=== PATIENT | female | born 1945 | race Caucasian/White ===

== ENCOUNTER → 2024-01-31 13:42 | Outpatient (REF) | payer OTHER, SELFPAY | LOC: HWRAD 13:42 | PROVIDERS: ATTENDING PHYSICIAN Internal Medicine Hematology & Oncology; FAMILY PHYSICIAN Internal Medicine | DX: C32.9 Malignant neoplasm of larynx, unspecified (principal) | CPT/HCPCS: 70491; 71260; Q9967 ==

== ENCOUNTER 2024-02-21 14:43 | Inpatient (IN) | payer OTHER, SELFPAY ==
[2024-02-21] VITALS (10 sets, daily range): BP systolic 128–154; BP diastolic 74–97; BMI 18.8
--- NOTE | 2024-02-21 09:46 | ED.GENMED ---
History of Present Illness
General
Chief Complaint: Breathing Problem
Source: patient
Exam Limitations: none
Time Seen by Provider: 02/21/24 09:20
Nursing documentation reviewed up to this point in time: agreed with
Travel History
Have you had any contact with someone who has COVID-19?: No
Do you have any symptoms of coronavirus? Fever > 100 degrees, chills, cough, shortness of breath, sore throat, loss of taste or smell, muscle aches, or headache?: Yes
Symptoms:: sob
History of Present Illness
History of Present Illness:
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
Presents for acute shortness of breath since 3 AM. Patient says that she has been coughing for about a month. It appears that she had an outpatient chest and neck CT with contrast in January here showing moderate right middle lobe pneumonia,
moderate right lower lobe pneumonia and moderate central lobar emphysema as well as a stable 1.5 cm spiculated pulmonary mass at the left apex as well as severe mucosal thickening measuring 5.5 cm in the hypopharynx to the subglottic trachea with
wall thickening and laryngeal fold thickening which is partly related to her neoplasm as well as postradiation edema and inflammatory changes
Patient says that she normally has a hoarse voice but normally her breathing is not audible. Patient says that she started feeling short of breath at 3 AM and felt like she could not catch her breath. She says it is not normal for her to sound
this way when she agrees. She does not have known fever, chills, and is able to tolerate her secretions, she is not having any painful swallowing.
Patient has no known diagnosis of COPD however prior to her cancer diagnosis they thought her shortness of breath was related to COPD and she was put on inhalers.
She formally smoked but does not smoke currently
Patient had a former tracheostomy
Past History
Past History
ED Past Medical History: Cancer (laryngeal), COPD and Other (smoker)
ED Past Surgical History: None
Social History
Tobacco: Smoker
Alcohol: None
Drug: None
Personal: Single
Living: alone
Review of Systems
Review of Systems
Allergies reviewed?: Yes
All Other Systems: Not applicable
Phy Exam
Physical Exam
Physical Exam:
GENERAL: Alert , in no apparent distress
EYE: pupils equal and reactive
NECK: Supple, mild swelling and tednerenss anteriorly
ENT: dry mouth
no obvious swelling
laryngitis
CARDIAC: Regular rate and rhythm .
LUNGS: occ cough, wheezing end exp b/l, no tachypnea
ABDOMEN: Soft, without focal tenderness, no r/g, no cvat, normal bowel sounds
NEUROLOGICAL: Alert and oriented, no focal neuro deficits
SKIN: Warm and dry, skin intact.
MUSCULOSKELETAL: No edema, well perfused. neg jean carlos's sign
PSYCH: Normal and appropriate interaction.
Scores
Heart Failure Risk
Heart Failure Risk Score: Not Applicable
Course
Orders/Labs/Results
Orders:
Orders
02/21/24 09:25
EKG [Electrocardiogram (*1)] Urgent
Reason for Study: Shortness of Breath
EKG- Treatment ONCE
02/21/24 09:28
COVID-19 Antigen Urgent
Source: Nasal Swab
Complete Blood Count/With Diff Urgent
Comprehensive Metabolic Panel Urgent
Prothrombin Time Urgent
Troponin I Urgent
Influenza A+B Rapid Molecular Urgent
ELVER Source: Nasal Swab
Specimen Description:
02/21/24 09:46
Ipratropium/Albuterol Sulfate [Duoneb] 3 ml INH R NOW STA
02/21/24 10:10
CT Chest Pe Study Urgent
Comment:
Reason For Exam: new sob, known cancer
CT Neck With Iv Contrast Urgent
Comment:
Reason For Exam: stridor, trouble breathing, larynx cancer
02/21/24 12:31
Piperacillin/Tazo 3.375 Gram [Zosyn] 3.375 gram in 50 ml IV NOW
02/21/24 12:56
Blood Culture Q30M
ELVER Source: Blood/Venous
Specimen Description:
02/21/24 13:12
Blood Culture Q30M
ELVER Source: Blood/Venous
Specimen Description:
02/21/24 14:22
Admit/Transfer Patient As Directed
Co-Sign Provider:
Level of Care: Inpatient admission
Assign to:: Medical/Surgical
Physician / Group: Ariella
Diagnosis: Shortness of breath
Reason for Hospitalization: Shortness of breath
Expected length of stay greater than two midnights?: Yes
ELOS- Estimated Length of Stay in days: 3
I certify the patient meets the requirements for IP care: Yes
02/21/24 14:23
Code Status As Directed
Resuscitation Status: Full Code
Abnormal Lab Results
02/21/24
09:28
WBC 23.3 H 10^3/uL
(4.8-10.8)
RBC 3.77 L 10^6/uL
(4.20-5.40)
Hgb 11.1 L g/dL
(12.0-16.0)
Hct 33.9 L %
(37.0-47.0)
MCHC 32.7 L g/dL
(33.0-37.0)
Abs Immat Gran (auto) 0.4 H 10^3/uL
(0-0.05)
Absolute Neuts (auto) 21.7 H 10^3/uL
(1.4-6.5)
Absolute Lymphs (auto) 0.5 L 10^3/uL
(1.2-3.4)
Immature Gran % 1.5 H %
(0-0.5)
Neutrophils % 92.9 H %
(42.2-75.2)
Lymphocytes % 2.0 L %
(20.5-51.1)
Sodium 133 L mmol/L
(135-145)
Chloride 94 L mmol/L
(98-107)
Carbon Dioxide 33 H mmol/L
(22-30)
Creatinine 0.5 L mg/dL
(0.6-1.0)
Glucose 105 H mg/dl
(70-99)
Alkaline Phosphatase 198 H U/L
(38-126)
02/21/24 09:28
02/21/24 09:28
Vital Signs
Initial and Last Documented VS:
Initial Vital Signs
Temp Pulse Resp BP Pulse Ox
98.8 F 97 22 136/89 93
02/21/24 09:23 02/21/24 09:23 02/21/24 09:23 02/21/24 09:23 02/21/24 09:23
Last Documented Vital Signs
Temp Pulse Resp BP Pulse Ox
99.6 F 102 18 154/84 95
02/21/24 12:43 02/21/24 14:30 02/21/24 14:30 02/21/24 14:00 02/21/24 14:30
MDM/Problems Addressed
Differential Diagnosis Includes:
pneumonia, edema, epiglottitis, covid
MDM/Problems Addressed:
78 y/o F with h/o laryngeal cancer (previously had radiation,chemo,trach with reversal 2021), has had recurrence in the past 6 mo, here with dyspnea since 3 am with some very mild stridorous sounding breathing which she says is not typical; her sat
was 93% and she had some mild wheezes (also has emphysema) and a low grade temp, leukocytosis 23k (not on steroids), flu and covid neg;
and ct neck/chest with stable appearance of submucosal edema from the hypopharynx to the subglottic trachea resulting ing narrowing of the airway; it looks similar to previous ct from last month; she appears more clinicaly like pneumonia - coughing
up secretions, temp 99.6, fatigue;
had a CT from 1 mo ago suggesting pneumonia which was never treated
will admit for airway managmeent, iv abx.
*Critical Care Note
Total Time (30-74mins, 75-104mins- exclusive of procedures): Not Applicable
ED Attending Note
-
Portions of this chart may have been created with voice recognition software.� Occasional wrong word or��sound alike� substitutions may have occurred due to the inherent limitations of voice recognition software.
Discharge Plan
Departure
Patient Disposition: Admit
Date of Disposition: 02/21/24
Time of Disposition: 12:44
Admit to: IMU
Presentation/result/management discussed w/ accepting MD/DO: Hospitalist
Condition: Fair
Covid-19: Negative COVID-19
Discharge Problem:
Stridor, Dyspnea, COPD exacerbation
Interventions
Interventions:
*Risk Screen - Suicide Last Done: 02/21/24 09:27
*General Assessment Last Done: 02/21/24 09:27
*Neglect/Abuse Screening Last Done: 02/21/24 09:27
*ED COVID-19 Vaccine History Last Done: 02/21/24 09:27
ED- Cardiac Assessment Last Done: 02/21/24 09:27
ED- Pulmonary Assessment Last Done: 02/21/24 09:27
[2024-02-21] MEDS: DUONEB 3 ML INH ×2 (09:50→19:16)
[2024-02-21 09:54] LABS: % Basophils 0.8 % (0-2); % Eosinophils 0.3 % (0-6); % Immature Granulocytes 1.5 % (0-0.5); % Monocytes 2.5 % (1.7-9.3); % Neutrophils 92.9 % (42.2-75.2); Absolute Basophils 0.2 10^3/uL (0-0.2); Absolute Eosinophils 0.1 10^3/uL (0-0.7); Absolute Immature Granulocytes 0.4 10^3/uL (0-0.05); Absolute Lymphocytes 0.5 10^3/uL (1.2-3.4); Absolute Monocytes 0.6 10^3/uL (0.1-0.6); Absolute Neutrophils 21.7 10^3/uL (1.4-6.5); Hematocrit 33.9 % (37.0-47.0); Hemoglobin 11.1 g/dL (12.0-16.0); Mean Corp Hgb Conc. 32.7 g/dL (33.0-37.0); Mean Corpuscular Hgb 29.4 pg (27.0-31.0); Mean Corpuscular Volume 89.9 fL (81.0-99.0); Mean Platelet Volume 8.8 fL (7.4-10.4); Nucleated Red Blood Cells % 0 %; Platelet Count 260 10^3/uL (130-400); Red Blood Cell Count 3.77 10^6/uL (4.20-5.40); White Blood Cell Count 23.3 10^3/uL (4.8-10.8)
[2024-02-21 09:55] LABS: COVID-19 Antigen Negative (Negative)
[2024-02-21 09:56] LABS: INR 1.02; PT 13.4 Sec (11.4-14.6)
[2024-02-21 09:58] LABS: ALT (SGPT) 18 U/L (0-35); AST (SGOT) 21 U/L (14-36); Albumin 3.8 g/dl (3.5-5.0); Alkaline Phosphatase 198 U/L (38-126); Blood Urea Nitrogen 16 mg/dl (7-17); Calcium 9.5 mg/dl (8.4-10.2); Carbon Dioxide 33 mmol/L (22-30); Chloride 94 mmol/L (98-107); Estimated Creatinine Clearance 66 ml/min; Glucose 105 mg/dl (70-99); Potassium 4.3 mmol/L (3.5-5.1); Sodium 133 mmol/L (135-145); Total Bilirubin 0.5 mg/dl (0.2-1.3); Total Protein 6.7 g/dl (6.3-8.2); eGFR > 60.00
[2024-02-21 10:35] LABS: Troponin I < 0.012 ng/ml
[2024-02-21] MEDS: ZOSYN 50 IV (13:01)
--- NOTE | 2024-02-21 13:54 | PHANOTE ---
Patient receives chemotherapy at [facility] [[facility]] per patient report. She is scheduled for the next regimen on 03/01/24. Contacted clinic for drug regimen information. Center will fax information to ED fax.
--- NOTE | 2024-02-21 14:27 | HPS.HSE ---
Family Physician
-
Family Physician: Charlee Win
Chief Complaint
-
Shortness of breath
History of Present Illness
78-year-old female with history of laryngeal cancer treated with chemo and radiation in the past there was some scars down around her neck and she is having hoarseness of voice posttreatment, presented to the hospital after she woke up o'clock in
the morning feeling short of breath and gasping for air.
Admitted when she went to bed she was doing well. Then his symptom in the last couple days like fever or chill or cough or congestion, no headache or vision change, no urinary or GI symptoms.
No recent travel or sick contact.
Workup in the ER CT chest basically showed no pulm embolism and this showed some secretion in right and left main bronchi and left lower area was some pulmonary nodules seen in the past. In the ER given breathing treatment and overall feels some
improvement.
She is awake, alert and oriented x 3 and holds appropriate conversation, accompanied by her son at the bedside.
Patient admits she eats soft diet to the nectar thick liquid.
And according to the son she is not been eating drinking much and at some point she had a PEG tube now per recommendation of her oncologist who recommended she may need PEG tube she asked to be evaluated for PEG tube placement
Medical History
Past Medical History
Past Medical History: Reports Other
Additional Past Medical History:
Past medical history and reviewed: Next
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
Chronic hoarseness of voice
COPD
Pharyngeal dysphagia on soft diet with the nectar thick liquid.
History of tracheostomy placement and removal
History of PEG tube placement and removal
History of recurrent pneumonia
Social history: Lives at home with the family, quit smoking 2019 before diagnosed with laryngeal cancer, no alcohol or drug.
Family history: Reviewed and noncontributory
Past Surgical History: Reports Other
Social History
Unable to obtain full social history at this time due to: Other
Family History
Family History: Other
Allergies / Home Medications
Allergies reflects when Allergies were last updated in [facility].
Home Medications with original date entered in [facility]
Allergy/Medication List:
Allergies
Allergy/AdvReac Type Severity Reaction Status Date / Time
No Known Allergies Allergy Verified 02/21/24 09:24
Home Medications
acetaminophen 500 mg tablet 500 mg PO TIDPRN PRN pain 02/21/24
carboplatin 150 mg intravenous solution 260 mg IV UD 02/21/24
dexamethasone 4 mg tablet 4 mg PO UD taken with chemotherapy 02/21/24
docetaxel 80 mg/4 mL (20 mg/mL) intravenous solution 222 mg IV UD 02/21/24
ferrous sulfate 220 mg (44 mg iron)/5 mL oral elixir 220 mg PO DAILY supplement 02/21/24
gabapentin 250 mg/5 mL oral solution 250 mg PO BID pain 02/21/24
ibuprofen 200 mg tablet 400 mg PO BIDPRN PRN pain 02/21/24
mirtazapine 15 mg tablet 15 mg PO HS appetite stimulant 02/21/24
ondansetron HCl 8 mg tablet 8 mg PO Q8HPRN PRN nausea 02/21/24
oxycodone-acetaminophen 5 mg-325 mg tablet 1 tab PO Q6HPRN PRN pain 02/21/24
paclitaxel 6 mg/mL concentrate,intravenous 0 mg IV UD 02/21/24
pembrolizumab 25 mg/mL intravenous solution (Keytruda) 220 mg IV UD 02/21/24
prochlorperazine maleate 10 mg tablet 10 mg PO Q6HPRN PRN nausea 02/21/24
Review of Systems
-
A 12 point ROS was completed and negative except as noted: Yes
Physical Exam
Vital Signs
Vital Signs
Temp Pulse Resp BP Pulse Ox
99.6 F 103 22 154/84 93
02/21/24 12:43 02/21/24 14:15 02/21/24 14:15 02/21/24 14:00 02/21/24 14:15
Physical exam:
General: Mildly audible wheezing, hoarseness of voice appreciate awake, alert and oriented x3, not in distress and holds appropriate conversation.
HEENT: No active discharge, ecchymosis or bruising, moist lips, tongue and mucous membrane.
Eyes: No discharge or red conjunctiva, no nystagmus, pupils are reactive and equal
Neck: Scar and disfiguration of the neck anteriorly appreciated, supple, no JVD no bruit no goiter.
Respiratory: Normal AP contour and diameter, normal chest wall movement, normal respiratory effort, no respiratory distress,
Lungs: Good air entry bilaterally, bilateral wheezing and rhonchi, bilateral scattered rales .
Heart: S1, S2 regular, normal rate, no added sound.
Gastrointestinal: Positive bowel sounds, soft, nontender, no guarding or rigidity or organomegaly
Musculoskeletal: , no chest wall abnormality or tenderness. All joints and extremities have good range of motion, no muscle tenderness or any joint swelling or tenderness.
Extremities: No pitting edema, good peripheral pulses, good range of motion
Skin: Warm and dry, no ulceration, normal color.
Neurological: Awake, alert and oriented x3, speech clear and comprehensive, good muscle tone, good muscle tone moves extremities freely
Psychiatric: Normal mood, normal thought and judgment, normal affect,
Physical Exam
General: Other
Laboratory Results
-
02/21/24 09:28
02/21/24 09:28
Laboratory Results
PT 13.4 Sec (11.4-14.6) 02/21/24 09:28
INR 1.02 02/21/24 09:28
Total Bilirubin 0.5 mg/dl (0.2-1.3) 02/21/24 09:28
AST 21 U/L (14-36) 02/21/24 09:28
ALT 18 U/L (0-35) 02/21/24:28
Alkaline Phosphatase 198 U/L (38-126) H 02/21/24 09:28
Troponin I < 0.012 ng/ml 02/21/24 09:28
CT neck and chest:
NECK:
1. Submucosal edema from the hypopharynx to the subglottic trachea with resultant narrowing of the airway at the level of the larynx. Findings remain most suggestive of treated neoplasm and posttreatment related changes. Similar appearance compared
to the neck CT from 01/31/2024. Direct visualization can be considered if clinically indicated.
CHEST:
1. No CTA evidence for an acute pulmonary thromboembolism.
2. Moderate emphysema.
3. Stable spiculated pulmonary nodule in the left lung apex corresponding to treated malignancy.
4. Secretions in the right and left mainstem bronchi and left lower lobe bronchi.
Data Reviewed
-
Diagnostic Radiology: Image Personally Visualized and interpreted, Discussed with Patient and Discussed with Family
Lab Data: Labs Reviewed by me, Discussed with Patient and Discussed with Family
Old Records: Reviewed
Impression/Plan
-
IMPRESSION:
78-year-old female with laryngeal cancer and COPD, presented with sudden onset of shortness of breath around 3:00 in the morning, concerning for COPD exacerbation with possible superadded or triggered by pneumonia especially she is at risk of
aspiration pneumonia and she is immunocompromise.
Acute sepsis: His white cell count is more than 23,, possible related to COPD exacerbation by pneumonia specialist for aspiration pneumonia in immunocompromised patient.
Shortness of breath
Concern for pneumonia special aspiration pneumonia
Leukocytosis.
Failure to thrive
Poor oral intake because of the laryngeal cancer
Hyponatremia, present on admission sodium is 133,
History of laryngeal cancer status post chemoradiation
Chronic hoarseness of voice
Ex-smoker
PLAN:
For now we will not like COPD exacerbation and pneumonia specialist for the MRSA and Pseudomonas with history of recurrent pneumonia in the past and being immunocompromise.
Cover with Vanco and cefepime
Sputum and blood cultures ordered, antibiotic can be tailored accordingly if there is no culture or negative, antibiotic could be discontinued
Procalcitonin
Monitor vital sign
IV fluid
Cough medication as needed
Nausea meds as needed
DuoNeb 4 times daily
Dexamethasone 4 mg every 8 hour taper as she improved
CT neck shows some laryngeal edema and thickening but have no respiratory compromise and this is seen in the prior CAT scan, patient already on Decadron and breathing treatment
Mechanical soft diet and nectar thick liquid
Get a swallowing eval
Patient was recommended to have evaluation of the PEG tube as she is not eating drinking much, will consult GI admitted for further workup through GI
All discussed with the patient and his son
CODE STATUS full code
DVT prophylaxis heparin subcu
--- NOTE | 2024-02-21 14:59 | CON.GI ---
Addendum entered and electronically signed by Lazara Prabhakar DO 02/21/24 16:51:
Patient seen and examined independently of HAROLDO. I agree with her note with my additions below.
I did review her yesterday's note with her oncologist, Dr. Anne Yoder at [place]. She has a history of recurrent laryngeal cancer squamous cell type. Her care is all at [place] but does she does do her imaging here at [facility].
Patient was at home became short of breath called 911 and was brought to [facility]. Her most recent chemo and immunotherapy was February 09, 2024. She is on carbo/Taxol/Keytruda every 21 days.
Overall, she has not been doing well. She has trouble with appetite taste, painful swallowing. She is losing weight feeling fatigue. Says it takes her all day just to drink a small amount of fluid. The sips go down very slowly. She was seen by
ENT in early January at [place]. Tells me they did a biopsy and a dilation. On imaging she has narrowing of the larynx as well as fluid in the bronchial tubes. She is being treated for pneumonia and states that after getting antibiotics she had
some mild improvement. She is not on oxygen and is satting 94% on room air. She is audibly wheezing. Her lungs are also wheezing on exam. She is asking about a PEG tube which is also present in her oncology note. She is not followed by GI at
[place], but was seen by Dr. Bravo for EGD/EUS in the past. In the past she did have a trach and PEG placed in September 2022 sounds like it was removed in 2022.
Patient states she is lost about 18 pounds over the last month. She was started on Remeron for appetite stimulation Magic mouthwash for dysphagia.
We put a call out to her oncologist to ensure there is no contraindication for her to have a PEG tube
Currently needs pulmonary optimization prior to being sedated for a PEG.
Would suggest a T-fastener PEG tube and if her pulmonary status is optimized we could plan for this on Monday
Original Note:
Consultation
-
Date/Time Consultation Requested: 02/21/24 1430
Date/Time Consultation Performed: 02/21/24 1500
Requesting Provider: Jass Krishnan MD
Performing Provider: HAROLDO Plunkett, Lazara Prabhakar DO
Reason for Consultation: peg evaluation
Medical History
Chief Complaint / HPI
Chief Complaint: failure to thrive
History of Present Illness:
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 In reviewing with patient she was diagnosed in 2021. She initially had
chemo and radiation with placement and trach and peg and removal after completed. She had recurrence and had been on current therapy with Dr. Anne Yoder. Per chart has been on carboplatin, Taxotere and Keytruda with last treatment 02/08.
Last PET scan completed here with recurrent laryngeal CA. 1.4 cm pulm nodule and vertebral uptake inflammation, infection or less likely malignancy and emphysema. Recent CT chest and neck on admission with edema from hypopharynx to trachea and
narrowing of airway with treated neoplasm. She also admits to throat biopsy and stretching with decline since 01/11. She now presents with shortness of breath and cough over last month with concern for PNA vs COPD with sepsis and elevated WBC's.
Asked to see as patient concern for wt loss of recent 6 lb with slow eating with concern for aspiration to reassess for peg.
At this time she admits to odynophagia and slow eating. Minimal dysphagia. Occasional nausea controlled with Zofran. Pt otherwise denies GERD, vomiting, abdominal pain, diarrhea, constipation,blood or black in stools. Pt did not recall EGD
in past but possibly completed with peg. No colonoscopy in past.
Past Medical History
Past Medical History: Cancer (laryngeal CA squamous cell CA, vocal cord tumor s/p chemo and radiation the local recurrence with also noted lung nodule and uptake L5/S1 inflammation, infection vs less likely malignancy, mediastinal ), COPD and Other
(chronic hoarseness, pharyngeal dysphagia, recurrent PNA, anemia, cardiomyopathy )
Past Surgical History: Other (prior trach and pegm, throat bx and dilation 01/12/24, bronch)
Social History
Tobacco: Former Smoker
Alcohol: Former
Drug: None
Personal:
Living: With Family
Employment: Retired
Family History
Family History: Other (no family hx GI malignancies )
Allergies / Home Medications
Allergy/AdvReac Type Severity Reaction Status Date / Time
No Known Allergies Allergy Verified 02/21/24 09:24
�Medication �Instructions �Recorded
acetaminophen 500 mg tablet 500 mg PO TIDPRN PRN pain 02/21/24
carboplatin 150 mg intravenous 260 mg IV UD 02/21/24
solution
dexamethasone 4 mg tablet 4 mg PO UD taken with chemotherapy 02/21/24
docetaxel 80 mg/4 mL (20 mg/mL) 222 mg IV UD 02/21/24
intravenous solution
ferrous sulfate 220 mg (44 mg 220 mg PO DAILY supplement 02/21/24
iron)/5 mL oral elixir
gabapentin 250 mg/5 mL oral 250 mg PO BID pain 02/21/24
solution
ibuprofen 200 mg tablet 400 mg PO BIDPRN PRN pain 02/21/24
mirtazapine 15 mg tablet 15 mg PO HS appetite stimulant 02/21/24
ondansetron HCl 8 mg tablet 8 mg PO Q8HPRN PRN nausea 02/21/24
oxycodone-acetaminophen 5 mg-325 1 tab PO Q6HPRN PRN pain 02/21/24
mg tablet
paclitaxel 6 mg/mL 0 mg IV UD 02/21/24
concentrate,intravenous
pembrolizumab 25 mg/mL intravenous 220 mg IV UD 02/21/24
solution (Keytruda)
prochlorperazine maleate 10 mg 10 mg PO Q6HPRN PRN nausea 02/21/24
tablet
Review of Systems
-
History Source: Patient
Constitutional: Reports Weight Loss (pt with wt loss last year then gain recent 6 lbs wt loss )
EENT: Reports Other (dysphagia, post nasal drip with secretions, hoarseness )
Respiratory: Reports Cough and Trouble Breathing
Cardiac: Reports No Symptoms
Abdomen/GI: Reports Nausea
: Reports No Symptoms
Musculoskeletal: Reports No Symptoms
Skin: Reports No Symptoms
Neurological: Reports Weakness
Endocrine: Reports No Symptoms
Hematologic/Lymphatic: Reports No Symptoms
Vital Signs
Temp Pulse Resp BP Pulse Ox
99.6 F 102 18 154/84 95
02/21/24 12:43 02/21/24 14:30 02/21/24 14:30 02/21/24 14:00 02/21/24 14:30
Physical Exam
Exam
General: Other (thin appearing)
HEENT: Other (soft hoarse voice, no thrush noted on exam)
Respiratory: Other (decreased bases with productive cough with secretions)
Cardiac: Other (tachy)
GI: Soft, Non Tender, Non Distended and Other (old peg site healed)
Musculoskeletal: No Clubbing and No Cyanosis
Skin: Warm and Dry
Neuro: Awake, Alert and AO x 3
Psych: Calm
Results
WBC 23.3 10^3/uL (4.8-10.8) H 02/21/24 09:28
Hgb 11.1 g/dL (12.0-16.0) L 02/21/24 09:28
Hct 33.9 % (37.0-47.0) L 02/21/24 09:28
MCV 89.9 fL (81.0-99.0) 02/21/24 09:28
Plt Count 260 10^3/uL (130-400) 02/21/24 09:28
Absolute Neuts (auto) 21.7 10^3/uL (1.4-6.5) H 02/21/24 09:
PT 13.4 Sec (11.4-14.6) 02/21/24:
INR 1.02 02/21/24:
Sodium 133 mmol/L (135-145) L 02/21/24:
Potassium 4.3 mmol/L (3.5-5.1) 02/21/24:
Chloride 94 mmol/L (98-107) L 02/21/24:
Carbon Dioxide 33 mmol/L (22-30) H 02/21/24:
BUN 16 mg/dl (7-17) 02/21/24:
Creatinine 0.5 mg/dL (0.6-1.0) L 02/21/24
Calcium 9.5 mg/dl (8.4-10.2) 02/21/24:
Total Bilirubin 0.5 mg/dl (0.2-1.3) 02/21/24:
AST 21 U/L (14-36) 02/21/24:
ALT 18 U/L (0-35) 02/21/24:
Alkaline Phosphatase 198 U/L (38-126) H 02/21/24:
Diagnostic Image Results:
11/29/23 PET
1. Marked interval increase in elevated FDG uptake in the larynx suggesting RECURRENT LARYNGEAL CARCINOMA.
2. 1.4 cm spiculated pulmonary nodule in the left lung apex at the site of treated malignancy.
3. New 2.0 cm focus of increased FDG uptake located along the left anterolateral margin of the L5/S1 intervertebral disc. Diagnostic possibilities are (1) acute inflammation, (2) acute infection, or (3) less likely malignancy given the location.
4. Moderate emphysema in the upper lobes of both lungs.
02/21/24 CT chest/neck
NECK:
1. Submucosal edema from the hypopharynx to the subglottic trachea with resultant narrowing of the airway at the level of the larynx. Findings remain most suggestive of treated neoplasm and posttreatment related changes. Similar appearance compared
to the neck CT from 01/31/2024. Direct visualization can be considered if clinically indicated.
CHEST:
1. No CTA evidence for an acute pulmonary thromboembolism.
2. Moderate emphysema.
3. Stable spiculated pulmonary nodule in the left lung apex corresponding to treated malignancy.
4. Secretions in the right and left mainstem bronchi and left lower lobe bronchi.
Prior GI Procedures:
EGD: ? with peg
Colonoscopy: pt did not recall
Assessment / Plan
-
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 In reviewing with patient she was diagnosed in 2021. She initially had
chemo and radiation with placement and trach and peg and removal after completed. She had recurrence and had been on current therapy with Dr. Anne Yoder. Per chart has been on carboplatin, Taxotere and Keytruda with last treatment 02/08.
Last PET scan completed here with recurrent laryngeal CA. 1.4 cm pulm nodule and vertebral uptake inflammation, infection or less likely malignancy and emphysema. Recent CT chest and neck on admission with edema from hypopharynx to trachea and
narrowing of airway with treated neoplasm. She also admits to throat biopsy and stretching with decline since 01/11. She now presents with shortness of breath and cough over last month with concern for PNA vs COPD with sepsis and elevated WBC's.
Asked to see as patient concern for wt loss of recent 6 lb with slow eating with concern for aspiration to reassess for peg.
-laryngeal vocal cord CA with pulm nodule and uptake in spine less likely malignancy with currently carboplatin, Taxotere and Keytruda last 02/08
-odynophagia with slow eating
-hx biopsy and dilation 01/12/24
-leukocytosis
-possible COPD exacerbation vs PNA
-wt loss/failure to thrive
-prior trach and peg
other medical problems:
prior tobacco use
-CM
-chronic hoarseness
PLAN:
will review with Dr. Prabhakar for peg replacement
reviewed with nursing staff at Dr. Yoder's office and noted last office note 02/20 that peg /remeron for appetite stimulation was discussed
t/c replacement when stable from resp standpoint
would need to consider T fastner placement with prior need for dilation 01/11
Pt is a in agreement for placement
no current anticoagulation or abdominal metastatic disease noted
trend WBC's
for speech eval
will follow
-
-
Thank you for consultation and allowing me to participate in the patient's care. Please call the technical solutions engineer GI physician during the after hours with any questions or concerns.
--- NOTE | 2024-02-21 16:51 | W.PN.UPDATE ---
Update Note
Progress Note Update
For billing purposes
[2024-02-21] MEDS: DUONEB INH (18:02)
--- NOTE | 2024-02-21 18:40 | PTCARENOTE ---
pt admitted from ED aox3, insp and exp wheeze b/L pt on RA. regular heart sounds. +BS x4 pt reports last bm yesterday. cont b&B, skin CDI +PP B/L. dtr at bedside. CB within reach
--- NOTE | 2024-02-21 19:50 | PHA.VAN.IN ---
Assessment
- Assessment
Renal Function: Appears similar to baseline
Concomitant Antimicrobials: CEFEPIME
- Previous Dosing Experience
Previous Regimen: NONE
AUC Dosing Plan
- Dosing Variables
Dosing Weight (kg): 59.3
Dosing CrCl (ml/min): 75
Vd coefficient (L/kg): 0.7
- Empiric Dosing
Initial / Loading Dose: 1250MG
Maintenance Regimen: 750MG IV Q12H
Estimated AUC (mcg*h/mL): 560
Estimated Peak (mcg*h/mL): 32.8
Estimated Trough (mcg/ml): 15.8
Estimated Half Life (H): 10.4
Pharmacokinetics Vancomycin I
- -
Patient Age: 78
Patient Sex: Female
Vancomycin Day #: 1
Indication: Pulmonary/Respiratory
Requesting Provider: WHITNEY
Height / Weight:
Height 5 ft 6 in
Actual Weight 52.7 kg
Adjusted BW in k.3
- Vital Signs / Lab Results
Temp Pulse Resp BP Pulse Ox
98.5 F 94 16 133/96 95
02/21/24 18:23 02/21/24 19:20 02/21/24 19:20 02/21/24 18:23 02/21/24 19:20
Lab Results - Hematology
02/21/24
09:28
WBC 23.3 H
Lab Results - Chemistry
02/21/24
09:28
BUN 16
Creatinine 0.5 L
Estimated Creat Clear 66
Albumin 3.8
Microbiology Results
02/21/24 09:28 Influenza Types A & B ([facility]) - Final
Nasal Swab Negative for Influenza A & B, NAAT
Negative results must be combined with clinical observations
and patient history.
Nucleic Acid Amplification test (NAAT)performed on the
[employer] platform.
[2024-02-21] MEDS: VANCOCIN 275 MG IV (20:24)
[2024-02-21] MEDS: NSS 1000 IV (20:24)
[2024-02-21] MEDS: NEURONTIN 250 MG PO (20:25)
[2024-02-21] MEDS: STERILE WATER FOR INJECTION 10 ML IV (20:25)
[2024-02-21] MEDS: DECADRON 4 MG IV (20:26)
[2024-02-21] MEDS: HEPARIN 5000 UNITS SC (20:26)
[2024-02-21] MEDS: MAXIPIME 1000 MG IV (20:26)
[2024-02-21] MEDS: REMERON 15 MG PO (20:29)
[2024-02-21] MEDS: FLUSH (NSS) 2 FLUSH IV (20:34)
[2024-02-22] MEDS: DECADRON 4 MG IV ×2 (04:11→12:33)
[2024-02-22] MEDS: MAXIPIME 1000 MG IV ×3 (04:11→21:27)
[2024-02-22] MEDS: STERILE WATER FOR INJECTION 10 ML IV ×3 (04:11→21:27)
[2024-02-22] MEDS: VANCOCIN 150 IV ×2 (06:05→17:58)
[2024-02-22 06:16] VITALS: BMI 17.2
[2024-02-22 07:00] VITALS: BP 127/87
[2024-02-22 07:19] LABS: % Basophils 0.3 % (0-2); % Immature Granulocytes 1.2 % (0-0.5); % Lymphocytes 1.4 % (20.5-51.1); % Monocytes 0.5 % (1.7-9.3); % Neutrophils 96.6 % (42.2-75.2); Absolute Basophils 0.1 10^3/uL (0-0.2); Absolute Immature Granulocytes 0.2 10^3/uL (0-0.05); Absolute Lymphocytes 0.3 10^3/uL (1.2-3.4); Absolute Monocytes 0.1 10^3/uL (0.1-0.6); Absolute Neutrophils 17.6 10^3/uL (1.4-6.5); Hematocrit 34.5 % (37.0-47.0); Hemoglobin 10.6 g/dL (12.0-16.0); Mean Corp Hgb Conc. 30.7 g/dL (33.0-37.0); Mean Corpuscular Hgb 28.5 pg (27.0-31.0); Mean Corpuscular Volume 92.7 fL (81.0-99.0); Mean Platelet Volume 8.9 fL (7.4-10.4); Nucleated Red Blood Cells % 0 %; Platelet Count 252 10^3/uL (130-400); Red Blood Cell Count 3.72 10^6/uL (4.20-5.40); Red Cell Dist. Width 13.8 % (11.5-14.5); White Blood Cell Count 18.2 10^3/uL (4.8-10.8)
[2024-02-22] MEDS: DUONEB 3 ML INH ×4 (07:19→19:26)
[2024-02-22 07:47] LABS: Blood Urea Nitrogen 16 mg/dl (7-17); Calcium 8.9 mg/dl (8.4-10.2); Carbon Dioxide 27 mmol/L (22-30); Chloride 98 mmol/L (98-107); Estimated Creatinine Clearance 61 ml/min; Glucose 128 mg/dl (70-99); Potassium 4.4 mmol/L (3.5-5.1); Sodium 133 mmol/L (135-145); eGFR > 60.00
[2024-02-22] MEDS: NEURONTIN 250 MG PO ×2 (08:51→21:27)
[2024-02-22] MEDS: HEPARIN 5000 UNITS SC ×2 (08:52→21:28)
--- NOTE | 2024-02-22 08:52 | PHA.VAN.FU ---
Vancomycin Assessment / Plan
- Assessment
Renal Function: Stable
WBC's are: Trending Down
In the past 24 hrs, patient has been: Afebrile
Concomitant Antimicrobials: cefepime
- Dosing Plan
Continue: Vanc 750mg Q12H
Dosing Comments: IBW used for dosing weight and CrCl in calculations
- Monitoring Plan
No level(s) ordered at this time: consider levels in next few days
- Follow Up
Pharmacy will continue to follow.
Vancomycin Follow UP
- -
Patient Age: 78
Patient Sex: Female
Vancomycin Day #: 2
Indication: Pulmonary/Respiratory
Requesting Provider: Dr. Krishnan
Pertinent Antimicrobial Allergies:
NKDA
Height / Weight:
Height 5 ft 6 in
Actual Weight 48.336 kg
IBW in k.3
Adjusted BW in kg:
Pertinent Past Medical History: BMI ~17.2, Layrngeal & vocal cord tumor
- Vital Signs / Lab Results
Temp Pulse Resp BP Pulse Ox
97.9 F 92 16 127/87 99
02/22/24 07:00 02/22/24 07:22 02/22/24 07:22 02/22/24 07:00 02/22/24 07:22
Lab Results - Hematology
02/21/24 02/22/24
09:28 06:44
WBC 23.3 H 18.2 H
Lab Results - Chemistry
02/21/24 02/22/24
09:28 06:44
BUN 16 16
Creatinine 0.5 L 0.5 L
Estimated Creat Clear 66 61
Albumin 3.8
Microbiology Results
02/21/24 09:28 Influenza Types A & B ([facility]) - Final
Nasal Swab Negative for Influenza A & B, NAAT
Negative results must be combined with clinical observations
and patient history.
Nucleic Acid Amplification test (NAAT)performed on the
[employer] platform.
[2024-02-22] MEDS: PERCOCET 5/325 1 TABLET PO ×3 (08:53→23:34)
[2024-02-22] MEDS: NSS 1000 IV (09:01)
--- NOTE | 2024-02-22 12:54 | W.PN.HOSP.TC ---
Today's Communication/Plan
-
All discussed with the patient and his nurse
Assessment / Plan
Assessment / Plan
Physical exam:
General: Mildly audible wheezing, hoarseness of voice appreciate awake, alert and oriented x3, not in distress and holds appropriate conversation.
HEENT: No active discharge, ecchymosis or bruising, moist lips, tongue and mucous membrane.
Eyes: No discharge or red conjunctiva, no nystagmus, pupils are reactive and equal
Neck: Scar and disfiguration of the neck anteriorly appreciated, supple, no JVD no bruit no goiter.
Respiratory: Normal AP contour and diameter, normal chest wall movement, normal respiratory effort, no respiratory distress,
Lungs: Good air entry bilaterally, decreased bilateral wheezing and rhonchi, bilateral scattered rales .
Heart: S1, S2 regular, normal rate, no added sound.
Gastrointestinal: Positive bowel sounds, soft, nontender, no guarding or rigidity or organomegaly
Musculoskeletal: , no chest wall abnormality or tenderness. All joints and extremities have good range of motion, no muscle tenderness or any joint swelling or tenderness.
Extremities: No pitting edema, good peripheral pulses, good range of motion
Skin: Warm and dry, no ulceration, normal color.
Neurological: Awake, alert and oriented x3, speech clear and comprehensive, good muscle tone, good muscle tone moves extremities freely
78-year-old female with laryngeal cancer and COPD, presented with sudden onset of shortness of breath around 3:00 in the morning, concerning for COPD exacerbation with possible superadded or triggered by pneumonia especially she is at risk of
aspiration pneumonia and she is immunocompromise.
Acute sepsis: His white cell count is more than 23,, possible related to COPD exacerbation by pneumonia with special concern for aspiration pneumonia in immunocompromised patient.
Shortness of breath
Concern for pneumonia special aspiration pneumonia
Leukocytosis.
Failure to thrive
Poor oral intake because of the laryngeal cancer
Hyponatremia, present on admission sodium is 133,
History of laryngeal cancer status post chemoradiation
Chronic hoarseness of voice
Ex-smoker
PLAN:
For now we will not like COPD exacerbation and pneumonia specialist for the MRSA and Pseudomonas with history of recurrent pneumonia in the past and being immunocompromise.
Continue Vanco and cefepime
Sputum and blood cultures ordered, antibiotic can be tailored accordingly if there is no culture or negative, antibiotic could be discontinued
Leukocytosis better even recently received Neulasta according to her oncologist
Monitor vital sign
Cough medication as needed
Nausea meds as needed
DuoNeb 4 times daily
Dexamethasone 4 mg every 8 hour taper as she improved, will change to twice daily for now
CT neck shows some laryngeal edema and thickening but have no respiratory compromise and this is seen in the prior CAT scan, patient already on Decadron and breathing treatment
Mechanical soft diet and nectar thick liquid
Get a swallowing eval, may need video swallow eval again
Patient change her mind about the PEG tube again I spoke to her oncologist in [place] Dr. Anne Guzman at [phone] look like that this conversation in the past and the idea if she needs PEG because of it scarring and complexity recommended
to be transferred to [place] but since she does not want a PEG tube there is no need for transfer.
All discussed with the patient
CODE STATUS full code
DVT prophylaxis heparin subcu
Anticipated Discharge: 24 - 48 hours
Subjective/Interval History
-
Date of Service: February 22, 2024
Seen and examined, awake and alert, looks and feels better than yesterday, however much less wheezing and feels her breathing is much better than before, have a dry cough, afebrile, denies chest pain or nausea or vomiting, today she admitted that
she does not want to get a PEG tube.
Objective Data
-
Labs:
Laboratory Results
02/22/24
06:44
WBC 18.2 H
Hgb 10.6 L
Hct 34.5 L
Plt Count 252
Sodium 133 L
Potassium 4.4
Chloride 98
Carbon Dioxide 27
BUN 16
Creatinine 0.5 L
Glucose 128 H
Calcium 8.9
Vital Signs:
Vital Signs
Temp Pulse Resp BP Pulse Ox
97.9 F 92 16 127/87 99
02/22/24 07:00 02/22/24 07:22 02/22/24 07:22 02/22/24 07:00 02/22/24 07:22
I&O
02/21/24 02/22/24 02/23/24
07:59 07:59 07:59
Intake Total 1275 / 1275
Balance 1275 / 1275
Review of Systems
-
All other systems: Reviewed and negative
[2024-02-22 14:01] VITALS: BMI 17.2
--- NOTE | 2024-02-22 14:32 | W.PN.GI.CBS2 ---
Addendum entered and electronically signed by Lazara Prabhakar DO 02/22/24 16:19:
Patient seen and examined independently of MANUFACTURING COORDINATOR. I agree with her note with my additions below
Jolie spoke to her oncologist, Dr. Yoder who would prefer her to have an ENT evaluation where she is well-known at [place] prior to any enteral feeding tubes.
Therefore the plan would be to optimize her pulmonary status then send her home with follow-up with her oncologist for management.
No need for GI involvement here at [facility]. We will sign off. Please call if we can be of any assistance.
Original Note:
Today's Communication / Plan
-
resp status with some improvement
pt wishes to hold on peg
I did review with her oncology this am and discussed if peg needed would need ENT eval prior and consider IR placed peg. She was willing to accept to [place] to be done there if needed as IR here does not due new peg placements
reviewed with speec proceed with VSE in am to ensure no aspiration
WBC's improved
discussed with hospitalist via tiger text
Assessment / Plan
-
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 In reviewing with patient she was diagnosed in 2021. She initially had
chemo and radiation with placement and trach and peg and removal after completed. She had recurrence and had been on current therapy with Dr. Anne Yoder. Per chart has been on carboplatin, Taxotere and Keytruda with last treatment 02/08.
Last PET scan completed here with recurrent laryngeal CA. 1.4 cm pulm nodule and vertebral uptake inflammation, infection or less likely malignancy and emphysema. Recent CT chest and neck on admission with edema from hypopharynx to trachea and
narrowing of airway with treated neoplasm. She also admits to throat biopsy and stretching with decline since 01/11. She now presents with shortness of breath and cough over last month with concern for PNA vs COPD with sepsis and elevated WBC's.
Asked to see as patient concern for wt loss of recent 6 lb with slow eating with concern for aspiration to reassess for peg.
-laryngeal vocal cord CA with pulm nodule and uptake in spine less likely malignancy with currently carboplatin, Taxotere and Keytruda last 02/08
-odynophagia with slow eating
-hx biopsy and dilation 01/12/24
-leukocytosis
-possible COPD exacerbation vs PNA
-wt loss/failure to thrive
-prior trach and peg
other medical problems:
prior tobacco use
-CM
-chronic hoarseness
PLAN:
resp status with some improvement
pt wishes to hold on peg
I did review with her oncology this am and discussed if peg needed would need ENT eval prior and consider IR placed peg. She was willing to accept to [place] to be done there if needed as IR here does not due new peg placements
reviewed with speec proceed with VSE in am to ensure no aspiration
WBC's improved
discussed with hospitalist via tiger text
Subjective
Subjective
Date of Service: February 22, 2024
on IDDS 6 diet no stools
Objective
Data Reviewed
Laboratory Data:
Laboratory Results
02/22/24 06:44
02/22/24 06:44
Laboratory Results
PT 13.4 Sec (11.4-14.6) 02/21/24 09:28
INR 1.02 02/21/24 09:28
Total Bilirubin 0.5 mg/dl (0.2-1.3) 02/21/24 09:28
AST 21 U/L (14-36) 02/21/24 09:28
ALT 18 U/L (0-35) 02/21/24 09:28
Alkaline Phosphatase 198 U/L (38-126) H 02/21/24 09:28
Vital Signs and I&O:
Vital Signs
Temp Pulse Resp BP Pulse Ox
97.9 F 92 16 127/87 99
02/22/24 07:00 02/22/24 07:22 02/22/24 07:22 02/22/24 07:00 02/22/24 07:22
I&O
02/21/24 02/22/24 02/23/24
06:59 06:59 06:59
Intake Total 1275 / 1275
Balance 1275 / 1275
Physical Exam
Physical Exam
HEENT: Anicteric and Moist mucous membranes
Cardiology: Normal Sinus Rhythm
Pulmonary: Other (decreased with slight course breath sounds )
GI: Soft, Non Distended and Non Tender
Extremities: No Edema
Neuro: Other (soft speech )
[2024-02-22 15:05] VITALS: BP 98/63
--- NOTE | 2024-02-22 15:09 | PTOTSP ---
Dysphagia Evaluation
Patient has a history of chronic moderate pharyngeal dysphagia, a history of repeated PNAs, and a chronic elevated risk for aspiration given her history of laryngeal cancer s/p prior treatment (chemo/radiation) with recurrence of this cancer and
current treatments (chemo/immunotherapy). She is currently reporting odynophagia and worsened dysphagia to liquids after her cancer treatment as well as after dilation of esophagus 01/12/2024 with ENT due to a tight UES. Liquid intake has been
reduced as a result. Objective assessment of swallowing warranted via video swallow study. Patient requested to continue an oral diet understanding aspiration risks/complications until this test is completed.
Recommend:
1. Video swallow study
2. Oral care 3-5x daily
3. Chin tuck recommended after last swallow study with mildly thick liquids
[2024-02-22 15:57] VITALS: PULSE 113; O2SAT 91
--- NOTE | 2024-02-22 16:03 | PTOTSP ---
The patient demonstrated independence with ambulation and curb step, offering no concerns regarding mobility upon return home. No PT needs identified at this time, will sign off.
--- NOTE | 2024-02-22 16:19 | W.PN.UPDATE ---
Update Note
Progress Note Update
For billing purposes
[2024-02-22] MEDS: REMERON 15 MG PO (21:28)
[2024-02-22] MEDS: MOTRIN 400 MG PO (21:30)
[2024-02-22] MEDS: FLUSH (NSS) 2 FLUSH IV (21:33)
[2024-02-22 23:08] VITALS: BP 102/74
[2024-02-23] MEDS: DECADRON 4 MG IV ×2 (00:04→12:07)
[2024-02-23] MEDS: FLUSH (NSS) 2 FLUSH IV ×3 (00:04→05:35)
[2024-02-23] MEDS: MAXIPIME 1000 MG IV ×3 (04:26→20:41)
[2024-02-23] MEDS: STERILE WATER FOR INJECTION 10 ML IV ×3 (04:26→20:41)
[2024-02-23] MEDS: VANCOCIN 150 IV ×2 (05:35→17:46)
[2024-02-23] MEDS: PERCOCET 5/325 1 TABLET PO ×3 (05:56→18:30)
[2024-02-23] MEDS: DUONEB 3 ML INH ×4 (07:03→19:39)
[2024-02-23 07:09] LABS: % Basophils 0.2 % (0-2); % Immature Granulocytes 1.3 % (0-0.5); % Lymphocytes 1.1 % (20.5-51.1); % Monocytes 1.3 % (1.7-9.3); % Neutrophils 96.1 % (42.2-75.2); Absolute Basophils 0.1 10^3/uL (0-0.2); Absolute Immature Granulocytes 0.4 10^3/uL (0-0.05); Absolute Lymphocytes 0.3 10^3/uL (1.2-3.4); Absolute Monocytes 0.4 10^3/uL (0.1-0.6); Absolute Neutrophils 27.4 10^3/uL (1.4-6.5); Hematocrit 30.3 % (37.0-47.0); Hemoglobin 9.7 g/dL (12.0-16.0); Mean Corpuscular Hgb 29.1 pg (27.0-31.0); Mean Platelet Volume 8.9 fL (7.4-10.4); Nucleated Red Blood Cells % 0 %; Platelet Count 247 10^3/uL (130-400); Red Blood Cell Count 3.33 10^6/uL (4.20-5.40); White Blood Cell Count 28.5 10^3/uL (4.8-10.8)
[2024-02-23 07:33] VITALS: BP 100/61
[2024-02-23] MEDS: NEURONTIN 250 MG PO ×2 (08:47→20:41)
[2024-02-23] MEDS: HEPARIN 5000 UNITS SC ×2 (08:48→20:41)
[2024-02-23] MEDS: MOTRIN 400 MG PO ×2 (08:59→14:39)
[2024-02-23 09:19] VITALS: BP 122/71; PULSE 95; O2SAT 94
--- NOTE | 2024-02-23 09:29 | PTOTSP ---
pt currently demonstrates ability to complete simple ADLs, functional transfers, ambulation with no assistance. issued and reviewed energy conservation techniques with pt, pt verbalized understanding. no acute OT needs identified at this time, will
sign off.
--- NOTE | 2024-02-23 10:20 | W.PN.HOSP.TC ---
Today's Communication/Plan
-
Discuss with pt about ENT eval and trach when back from E
Assessment / Plan
Assessment / Plan
78-year-old female with laryngeal cancer and COPD, presented with sudden onset of shortness of breath around 3:00 in the [facility]
Acute shortness of breath which quickly resolved - currently on RA.
My clinical concern is airway narrowing with decreased respiratory secretion clearance. No evidence of PE nor any evidence of obvious focal pneumonia. Patient currently without any expiratory wheeze.
Neck CT shows submucosal edema all the way from hypopharynx to subglottic trachea resulting in the narrowing of the airway and with secretion in the right and left main bronchus on the left lower lobe bronchus she seems to have a clearance issues
because of the airway narrowing. With stridor ongoing I think this is an issue which will not be resolved with medical treatments and would need to consider ENT eval.
She is afebrile. continue with Antibiotics treatments pending culture data. continue with steroid wean.
Leukocytosis- sec to neulasta .No evidence of sepsis. Clinically she is not toxic. Afebrile.
Dysphagia-VSE pending.
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
Mild Hyponatremia, present on admission sodium is 133 .Follow for now.
Dr Regan discussions
Patient change her mind about the PEG tube again I spoke to her oncologist in [place] Dr. Anne Guzman at [phone] look like that this conversation in the past and the idea if she needs PEG because of it scarring and complexity recommended
to be transferred to [place] but since she does not want a PEG tube there is no need for transfer.
Discussed with the primary oncologist today again. My concern about airway issue. She also feels strongly that ENT evaluation and even tracheostomy should be discussed. Will discuss with the patient when she comes back from [facility].
CODE STATUS full code
DVT prophylaxis heparin subcu
Total time spent on today's encounter was 52 minutes which included time spent in counseling the patient/ regarding diagnosis and treatment plan as listed above, goals of care, and symptom management. Case was discussed with nursing staff,
specialists, . All labs and imaging personally reviewed by me. Remainder the time spent in detailed review of previous records, lab data, imaging, and other medical provider documentation.
Anticipated Discharge: > 48 hours
Subjective/Interval History
-
Date of Service: February 23, 2024
Breathing comfortable today.
Chronic cough which is mostly seen in morning when she gets up and also noted when she lies flat on her back ;she lies on her sides.
On day of admission she had sudden onset of inability to breath .She had cough and phlegm. She felt immediately better in ambulance after breathing treatments . Ever since she is ok.
she remembers 1 time having a mucous plug causing respiratory distress.
In January of this year she had an ENT evaluation in fact had laryngeal biopsy.
She in the past had tracheostomy for around 6 months during the first chemoradiation treatment. Currently she is not on radiation.
Ongoing dysphagia at home.
denies nausea vomiting or abdominal pain. No chest pain.
Objective Data
-
Labs:
Laboratory Results
02/23/24
06:34
WBC 28.5 H
Hgb 9.7 L
Hct 30.3 L
Plt Count 247
Vital Signs:
Vital Signs
Temp Pulse Resp BP Pulse Ox
98.0 F 83 18 100/61 97
02/23/24 07:33 02/23/24 07:33 02/23/24 07:33 02/23/24 07:33 02/23/24 07:05
I&O
02/22/24 02/23/24 02/24/24
06:59 06:59 06:59
Intake Total 1275 / 1275 1210 / 1210
Balance 1275 / 1275 1210 / 1210
Review of Systems
-
Constitutional: Denies Fever
Neuro: Denies Dizzy
Physical Exam
-
General: Comfortable
HEENT: Moist Mucous Membranes and Other (palpable neck mass )
Respiratory: Non Labored Respirations and Other (stridor is audible without distress); Negative Wheezes or Accessory Resp Muscle Use
Cardiac: Regular Rhythm and S1/S2
GI: Soft
Neuro: AO x 3
Psych: Calm
Data Reviewed
-
Labs: Labs Reviewed by me
--- NOTE | 2024-02-23 11:31 | CM ---
Reviewed chart, met with patient to obtain information for assessment. Patient stated that she lives alone in a one story home with one step to enter. She described herself as independent with her ADLs, personal care, dressing and bathing. She
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 She ambulates without device and denied any DME in her home. She is not on o2.
She drives and can get to her appointments and do all her own shopping.
Patient has not had VN recently and has not been to a SNF.
Patient has a prescription plan and uses [facility] in [place].
Her provider is Dr. Charlee Win.
Patient stated that she does not feel that she will have any needs at discharge. She declined VN services at this time as she feels she is functioning at baseline.
Plan: Case management will continue to follow and assist with discharge planning. Home when stable.
--- NOTE | 2024-02-23 13:29 | PTOTSP ---
Addendum entered and electronically signed by [facility] 02/23/24 14:57:
6. Remain upright after intake for at least 30 minutes
Original Note:
Video Swallow Study
Summary: Patient presents with WFL oral and at least moderate-severe pharyngeal stage of swallowing. Etiology of dysphagia is felt to be due to recurrent laryngeal cancer and history of prior radiation therapy. There was silent aspiration with
thin liquids via cup with chin tuck and head rotation left as well as small volumes of silent aspiration of residue which did not clear larynx with mildly thick liquids and moderately thick liquids. A chin tuck with head rotation left was most
effect in protecting the airway with moderately thick liquids via tsp/cup and puree. Top down aspiration risk is chronically elevated. Esophageal sweep in the lateral view revealed significant retention throughout the esophagus. Bottom up
aspiration risk is also elevated. Please see patient care note for full details of penetration/aspiration and swallowing physiology.
If patient is opting for an oral diet understanding chronic risks of aspiration, consider the following below. Alternatively, could discuss non-oral means of nutrition/hydration if aligned with goals of care. Further goals of care discussions
warranted.
1. IDDSI Level 6 (Soft and Bite Sized), IDDSI Level 3 (Moderately Thick) via tsp/cup
2. Medications: crushed in puree
3. Strategies: head rotation left and with chin tucked, double swallows intermittent cough to try and clear aspirate
4. Oral care 3-5x daily
5. Dysphagia tx at the acute care level and after D/C
[2024-02-23] MEDS: MIRALAX 17 GRAMS PO (14:33)
--- NOTE | 2024-02-23 15:16 | PHA.VAN.FU ---
Addendum entered and electronically signed by Justa Leonard [facility] 02/23/24 15:22:
BUN & SCR ordered per protocol
Original Note:
Vancomycin Assessment / Plan
- Assessment
Renal Function: No New Labs Today
In the past 24 hrs, patient has been: Afebrile
Concomitant Antimicrobials: cefepime
- Dosing Plan
Continue: Vanc 750mg Q12H
- Monitoring Plan
Peak Level: 02/22 20:30
Trough Level: 02/23 05:30
Monitoring Comments: levels to be drawn after 4th maintenance dose
- Follow Up
Pharmacy will continue to follow.
Vancomycin Follow UP
- -
Patient Age: 78
Patient Sex: Female
Vancomycin Day #: 3
Indication: Pulmonary/Respiratory
Requesting Provider: Dr. Krihsnan
Pertinent Antimicrobial Allergies:
NKDA
Height / Weight:
Height 5 ft 6 in
Actual Weight 48.336 kg
IBW in k.3
Adjusted BW in kg:
Pertinent Past Medical History: BMI ~17.2, Layrngeal & vocal cord tumor
- Vital Signs / Lab Results
Temp Pulse Resp BP Pulse Ox
98.0 F 88 15 100/61 97
02/23/24 07:33 02/23/24 14:59 02/23/24 14:59 02/23/24 07:33 02/23/24 07:05
Lab Results - Hematology
02/21/24 02/22/24 02/23/24
09:28 06:44 06:34
WBC 23.3 H 18.2 H 28.5 H
Lab Results - Chemistry
02/21/24 02/22/24
09:28 06:44
BUN 16 16
Creatinine 0.5 L 0.5 L
Estimated Creat Clear 66 61
Albumin 3.8
Microbiology Results
02/21/24 12:56 Blood Culture - Preliminary
Blood/Venous No Growth in 48 hours- Final report to follow
02/21/24 13:12 Blood Culture - Preliminary
Blood/Venous No Growth in 48 hours- Final report to follow
02/23/24 09:46 Nasal Screen MRSA (PCR) - Final
Nose MRSA not detected - performed by PCR methodology.
02/22/24 04:30 Respiratory Culture - Final
Sputum Gram Stain - Final
[2024-02-23 16:00] VITALS: BP 115/65
[2024-02-23] MEDS: COLACE 100 MG PO (20:41)
[2024-02-23 21:25] LABS: Vancomycin Peak 18.3 ug/ml (18-26)
[2024-02-23] MEDS: REMERON PO (21:50)
[2024-02-23 23:00] VITALS: BP 113/66
[2024-02-24] MEDS: DECADRON 4 MG IV (00:58)
[2024-02-24] MEDS: PERCOCET 5/325 1 TABLET PO ×2 (00:58→07:05)
[2024-02-24] MEDS: MAXIPIME 1000 MG IV (03:46)
[2024-02-24] MEDS: STERILE WATER FOR INJECTION 10 ML IV (03:46)
[2024-02-24 07:00] VITALS: BP 139/77
[2024-02-24] MEDS: DUONEB 3 ML INH ×2 (07:25→11:43)
[2024-02-24] MEDS: NEURONTIN 250 MG PO (08:04)
[2024-02-24] MEDS: HEPARIN 5000 UNITS SC (08:05)
[2024-02-24] MEDS: VANCOCIN 150 IV (08:06)
[2024-02-24] MEDS: MIRALAX PO (08:16)
[2024-02-24] MEDS: COLACE PO (08:16)
[2024-02-24 08:38] LABS: Vancomycin Trough 9.2 ug/ml (5-20)
[2024-02-24 09:08] LABS: Blood Urea Nitrogen 24 mg/dl (7-17); Estimated Creatinine Clearance 61 ml/min
[2024-02-24] MEDS: MOTRIN 400 MG PO (09:51)
--- NOTE | 2024-02-24 11:30 | CON.MD ---
Consultation - Medical
-
Dictated.
Recurrent laryngeal cancer, difficult to determine exact location but appears to be bilateral and extensive, with gradual airway compromise and dysphagia.
Had acute dyspnea 3 days ago, much improved now.
Dysphagia appears to be controlled with dietary changes and Speech Therapy recommendations for now.
She would probably benefit most from total laryngectomy and she will contact her Head and Neck Surgeon, Dr. Ciro Echeverria at [facility], Monday.
It does not appear that urgent tracheostomy is necessary at this time but she understands that her airway obstruction will worsen without surgical treatment. She desires to go home before having laryngectomy or trach replacement by [facility], and
she understands and accepts the small risk that she could suffocate at home if her airway acutely worsens.
--- NOTE | 2024-02-24 11:53 | W.DS.TRANS ---
DC Summary - Master Barber
-
Discharge Instructions:
Discharge Diagnosis/Procedures Laryngeal cancer recurrence with narrow airway
and secreations clearence issue;dysphagia
Diet Other diet
Additional Diets Soft bite sized solids and moderately thick
liquids
Activity As tolerated
Driving Restrictions No driving
Bathing Restrictions None
Other Services ST
Instructions:
Stand-Alone Forms:
Changes to Home Medications: Yes
Discharge Medications:
DC Medications w/original date entered in [employer]
acetaminophen 500 mg tablet 500 mg PO TIDPRN PRN pain 02/21/24
carboplatin 150 mg intravenous solution 260 mg IV UD Oncology 02/21/24
dexamethasone 4 mg tablet 4 mg PO UD taken with chemotherapy 02/21/24
docetaxel 80 mg/4 mL (20 mg/mL) intravenous solution 222 mg IV UD Oncology 02/21/24
ferrous sulfate 220 mg (44 mg iron)/5 mL oral elixir 220 mg PO DAILY supplement 02/21/24
gabapentin 250 mg/5 mL oral solution 250 mg PO BID pain 02/21/24
ibuprofen 200 mg tablet 400 mg PO BIDPRN PRN pain 02/21/24
mirtazapine 15 mg tablet 15 mg PO HS appetite stimulant 02/21/24
ondansetron HCl 8 mg tablet 8 mg PO Q8HPRN PRN nausea 02/21/24
oxycodone-acetaminophen 5 mg-325 mg tablet 1 tab PO Q6HPRN PRN pain 02/21/24
paclitaxel 6 mg/mL concentrate,intravenous 0 mg IV UD Oncology 02/21/24
pembrolizumab 25 mg/mL intravenous solution (Keytruda) 220 mg IV UD Oncoloy 02/21/24
prochlorperazine maleate 10 mg tablet 10 mg PO Q6HPRN PRN nausea 02/21/24
doxycycline hyclate 100 mg tablet 100 mg PO BID #10 tabs 02/24/24
fluticasone propionate 44 mcg/actuation HFA aerosol inhaler 1 inh inhalation BID #10.6 grams 02/24/24
guaifenesin 100 mg/5 mL oral liquid (Siltussin SA) 200 mg (10 mL) PO BID AT 0800,1600 #473 mL 02/24/24
ipratropium 0.5 mg-albuterol 3 mg (2.5 mg base)/3 mL nebulization soln 3 ml inhalation BID AT 0800,1600 #90 mL 02/24/24
polyethylene glycol 3350 17 gram oral powder packet (HealthyLax) 17 g PO DAILY #30 ea 02/24/24
Home Medication Changes
New medications - Miralax,Duoneb,mucinex,doxycycline,flovent
Pending Results: No
--- NOTE | 2024-02-24 13:39 | W.PN.HOSP.TC ---
Addendum entered and electronically signed by Matt Randall MD 03/04/24 16:21:
pt meets AND/ASPEN criteria for severe protein calorie malnutrition. RD note reviewed and agree.
Original Note:
Today's Communication/Plan
-
DC
Assessment / Plan
Assessment / Plan
78-year-old female with laryngeal cancer and COPD, presented with sudden onset of shortness of breath around 3:00 in [facility]
Acute shortness of breath which quickly resolved - currently on RA.
My clinical concern is airway narrowing with decreased respiratory secretion clearance. No evidence of PE nor any evidence of obvious focal pneumonia. Patient currently without any expiratory wheeze.
Neck CT shows submucosal edema all the way from hypopharynx to subglottic trachea resulting in the narrowing of the airway and with secretion in the right and left main bronchus on the left lower lobe bronchus she seems to have a clearance issues
because of the airway narrowing. With stridor ongoing I think this is an issue which will not be resolved with medical treatments and would need ENT eval.
Appreciate ENT input - no impeding airway issues ; he has recommended pt to return to her head and neck doctor as She would probably benefit most from total laryngectomy .
No urgent trach needed but she understands that her airway would worsen and would be life threatening if she doesn't have further surgery treatments.
She is afebrile. continue with Antibiotics for another 5 days .I doubt her secretions are infected , no pneumonia noted on CT.
Advised to cw mucinex and nebs .
Also advised a steroid inhaler due to mucosal edema in airway .
Pt daughter present at bedside during these conversations about airway and surgical treatments.
Leukocytosis- sec to neulasta .No evidence of sepsis. Clinically she is not toxic. Afebrile.
Dysphagia-VSE noted -cw modified diet . Follow with ST as OP.
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
Mild Hyponatremia, present on admission sodium is 133 .Follow for now.
CODE STATUS full code
DVT prophylaxis heparin subcu
DC home today
Follow up as above
Total time of dc 35 min
Anticipated Discharge: Today
Subjective/Interval History
-
Date of Service: February 24, 2024
Denies shortness of breath.
Denies difficulty with cough or clearance of phlegm.
No nausea vomiting. No abdominal pain. Tolerating modified diet.
Objective Data
-
Labs:
Laboratory Results
02/24/24
08:15
BUN 24 H
Creatinine 0.5 L
Vital Signs:
Vital Signs
Temp Pulse Resp BP Pulse Ox
97.8 F 84 16 139/77 95
02/24/24 07:00 02/24/24 11:47 02/24/24 11:47 02/24/24 07:00 02/24/24 11:47
I&O
02/23/24 02/24/24 02/25/24
06:59 06:59 06:59
Intake Total 1210 / 1210 1040 / 1040 600 / 600
Balance 1210 / 1210 1040 / 1040 600 / 600
Review of Systems
-
Constitutional: Denies Fever
EENT: Denies Sore Throat
Abdomen/GI: Denies Abdominal Pain, Nausea or Vomiting
Neuro: Denies Dizzy or Headache
Physical Exam
-
General: No Apparent Distress
HEENT: Moist Mucous Membranes
Respiratory: Other (mild stridor when exerted not at rest ); Negative Wheezes
Cardiac: Regular Rhythm and S1/S2
GI: Soft and Nontender
Neuro: AO x 3
Psych: Calm; Negative Confused or Agitated
--- NOTE | 2024-02-24 18:18 | W.DCSUMMARY ---
Discharge Summary
Discharge Data
Date of Admission: 02/21/24
Date of Discharge: 02/24/24
-
Pending Results: No
Hospital Course
Primary diagnosis:
Acute episode of shortness of breath
Recurrent laryngeal cancer with gradual airway compromise and dysphagia
Leukocytosis suspect secondary to Neulasta
Secondary diagnosis:
Recurrent laryngeal cancer
Dysphagia
Hospital course: Patient is a 78-year-old lady with prior history of laryngeal cancer for which she had a tracheostomy and was treated with radiation and chemotherapy and had a recurrence discovered this year and currently started back on
chemotherapy came in with an acute shortness of breath episode which rather quickly resolved. CT neck showed Submucosal edema from the hypopharynx to the subglottic trachea with resultant narrowing of the airway at the level of the larynx. Findings
remain most suggestive of treated neoplasm and posttreatment related changes. Similar appearance compared to the neck CT from 01/31/2024. CT chest showed moderate emphysema, no PE, no pneumonia, stable spiculated left lung nodule and secretions in
the right and left main stem bronchus in the left lower lobe bronchus.
She was afebrile. Leukocytosis secondary to Neulasta. Not acting like a typical pneumonia but with secretions she was given antibiotics.
Primary concern was gradual airway compromise from her laryngeal cancer and prior history of radiation. Her episodes of shortness of breath may be due to clearance issue with regards to her respiratory secretions. She also has mild stridor. Was
seen by ENT who did a flexible laryngoscopy which did not show that exact location of the cancer but appears to be bilateral and extensive causing gradual airway compromise. No imminent airway compromise. ENT felt she would probably benefit from
total laryngectomy and the patient was to contact with her primary head and neck surgeon on Monday. No need for urgent tracheostomy. She was advised to keep her secretion and with Mucinex. She was also given 5 days of doxycycline. She was also
given nebulizers and Flovent steroid inhaler to see if it helps the edema in the airways.
Consultants on board:
ENT-Dr. Garsia
Discharge Plan
-
Patient Disposition: Home (Routine Discharge)
Discharge Diagnosis/Procedures: Laryngeal cancer recurrence with narrow airway and secreations clearence issue;dysphagia
Diet: Other diet
Additional Diets: Soft bite sized solids and moderately thick liquids
Activity: As tolerated
Driving Restrictions: No driving
Bathing Restrictions: None
Other Services: ST
Referrals:
Charlee Win MD [Family Provider] - in less than 1 week
Anne Yoder MD [Non-Admitting Privileges] - in one week
Prescriptions:
New
ipratropium-albuterol 0.5 mg-3 mg(2.5 mg base)/3 mL Solution For Nebulization
3 ml inhalation BID AT 0800,1600 Qty: 90 1RF
Rx Instructions:
and can also use as required every 8 hours if needed
polyethylene glycol 3350 [HealthyLax] 17 gram Powder In Packet
17 g PO DAILY Qty: 30 0RF
guaifenesin [Siltussin SA] 100 mg/5 mL Liquid
200 mg PO BID AT 0800,1600 Qty: 473 0RF
doxycycline hyclate 100 mg tablet
100 mg PO BID Qty: 10 0RF
fluticasone propionate 44 mcg/actuation HFA aerosol inhaler
1 inh inhalation BID Qty: 10.6 0RF
Continued
oxycodone-acetaminophen 5-325 mg tablet
1 tab PO Q6HPRN PRN (Reason: pain)
Patient Comments:
PDMP: filled #60 tablets 02/13/24 at [id number]
Patient states that she typically takess 3 tablets/24 hrs
mirtazapine 15 mg tablet
15 mg PO HS
ferrous sulfate 220 mg (44 mg iron)/5 mL elixir
220 mg PO DAILY
ondansetron HCl 8 mg tablet
8 mg PO Q8HPRN PRN (Reason: nausea)
prochlorperazine maleate 10 mg tablet
10 mg PO Q6HPRN PRN (Reason: nausea)
gabapentin 250 mg/5 mL solution
250 mg PO BID
acetaminophen 500 mg Tablet
500 mg PO TIDPRN PRN (Reason: pain )
ibuprofen 200 mg Tablet
400 mg PO BIDPRN PRN (Reason: pain )
dexamethasone 4 mg tablet
4 mg PO UD
carboplatin 150 mg Recon Soln
260 mg IV UD
Patient Comments:
jerilyn called 02/21/24 patient to get 3 cycles of each medication
paclitaxel 6 mg/mL Concentrate
0 mg IV UD
Rx Instructions:
to recieve on 2nd day of each cycle of chemo medication
docetaxel 80 mg/4 mL (20 mg/mL) Solution
222 mg IV UD
Keytruda 25 mg/mL Solution
220 mg IV UD
Discharge Orders:
Discharge Patient (As Directed); Ordered 02/24/24
Ordered By: Matt Randall
Discharge Date and Time
Discharge Date/Time: 02/24/24 13:01
Print Language: ANGUILLAN
--- NOTE | 2024-02-26 11:29 | PN.CDI ---
CDI
- -
CDI:
Physician Documentation Request
Admit Date: 02/21/24 14:43
Dear Doctor Prakash,
Please review the following and provide your response in the progress notes.
Clinical Indicators:
Patient with recurrent laryngeal cancer....
[employer] Therapist, 02/21
#Chart reviewed due to consult for weight loss and low BMI.
#...RD able to visulaize severe protrusion of clavical, apparent ribs,
#...orbtial area sunken in, and temporal wasting.
#With weight loss of > 10% in < two months, < 75% estimated needs > 1 month
#...and observed muscle and fat wasting pt meets AND/ASPEN criteria
#...for severe protein calorie malnutrition.
Please provide specificity regarding the the patient's nutritional status....:
Severe Protein Calorie Malnutrition
Other (please specify)
[place] Criteria (ACP Hospitalist 2017)
2 or more criteria must be present for either
non severe or severe malnutrition
Note that the criteria differs related to the
presence of an acute or chronic illness
Acute Illness Chronic Illness
Energy Intake Non Severe: <75% for >7 days Non Severe: <75% for >1 month
Severe: <50% for >5 days Severe: <75% for >1 month
Weight Loss Non Severe: 1-2% over 1 week Non Severe: 5% over 1 month
5% over 1 month 7.5% over 3 months
7.5% over 3 months 10% over 6 months
1 year N/A 20% over 1 year
Severe: >2% over 1 week Severe: >5% over 1 month
>5% over 1 month >7.5% over 3 months
>7.5% over 3 months >10% over 6 months
1 year N/A >20% over 1 year
Body Fat Non Severe: Mild Decrease Non Severe: Mild Loss
Severe: Moderate Decrease Severe: Severe Loss
Muscle Mass Non Severe: Mild Decrease Non Severe: Mild Loss
Severe: Moderate Decrease Severe: Severe Loss
Use of terms such as suspected, likely, concern for, or probable (associated with a specific diagnosis that is being evaluated, monitored, or treated as if it exists) are acceptable and can be coded in the inpatient setting, when documented at the
time of discharge.
Thank you,
Sabiha Queen RN BSN CCDS
CDI Specialist
please contact via tiger text
Please use your independent medical judgment in providing your response.
== END 2024-02-24 13:01 | disposition home or self-care (01) | DRG 146 ==
LOC: 3 WEST ACU 14:43
PROVIDERS: Physician Assistant; ADMITTING PHYSICIAN Internal Medicine; ATTENDING PHYSICIAN Internal Medicine; CONSULT PHYSICIAN Otolaryngology; EMERGENCY PHYSICIAN Student in an Organized Health Care Education/Training Program; FAMILY PHYSICIAN Internal Medicine; OTHER PHYSICIAN Nurse Practitioner Adult Health
PROC: 0CJS8ZZ Inspection of Larynx, Via Natural or Artificial Opening Endoscopic (ICD-10-PCS; 2024-02-24)
DX: C32.9 Malignant neoplasm of larynx, unspecified (principal); E43 Unspecified severe protein-calorie malnutrition; D84.9 Immunodeficiency, unspecified; E87.1 Hypo-osmolality and hyponatremia; Z68.1 Body mass index [BMI] 19.9 or less, adult; I42.9 Cardiomyopathy, unspecified; R13.10 Dysphagia, unspecified; R62.7 Adult failure to thrive; T45.8X5A Adverse effect of other primarily systemic and hematological agents, initial encounter; Z92.21 Personal history of antineoplastic chemotherapy; Z92.3 Personal history of irradiation; F17.200 Nicotine dependence, unspecified, uncomplicated; J43.9 Emphysema, unspecified
CPT/HCPCS: 70491; 71275; 74230; 80048; 80053; 80202; 82565; 84484; 84520; 85025; 85610; 87040; 87205; 87502; 87641; 87811; 92526; 92610; 92611; 93005; 94640; 96365; 97162; 97165; 99285; Q9967